=== PATIENT | female | born 1955 | race Caucasian/White ===

== ENCOUNTER 2022-10-22 10:50 | Day surgery (SDC) | payer MEDICARE ==
[2022-10-18 12:29] VITALS: BMI 30.9
[2022-10-22 12:33] LABS: #Basophils 0.1 thou/uL (0.0-0.2); #Eosinphils 0.3 thou/uL (0.0-0.7); %Basophils 0.6 % (0.0-1.0); %Eosinophils 2.7 % (0.0-10.0); %Lymphocytes 23.9 % (21.0-51.0); %Monocytes 10.3 % (0.0-10.0); %Neutrophils 62.2 % (42.0-75.0); Hematocrit 46.8 % (36.0-47.0); Hemoglobin 15.5 g/dL (12.0-16.0); Mean Corpuscular HGB CONC 33.1 g/dL (32.0-36.0); Mean Corpuscular Hemoglobin 30.6 pg (27.0-31.0); Mean Corpuscular Volume 92.3 fl (78.0-98.0); Platelet Count 229 10x3/uL (130-400); RBC Distribution Width 13.9 % (11.5-14.5); Red Blood Cell (RBC) Count 5.07 mill/uL (4.20-5.40); White Blood Cell (WBC) Count 9.6 10x3/uL (4.8-10.8)
[2022-10-22] MEDS ORDERED: Bupivacaine 0.25% HCL 30 ML VIAL ONE (12:55)
[2022-10-22] MEDS ORDERED: EPINEPHrine 1 MG/ML AMP ONE (12:55)
[2022-10-22] MEDS ORDERED: Lidocaine 2% PF 5 ML VIAL ONE (12:55)
[2022-10-22] MEDS ORDERED: Midazolam HCl 2 mg/2 ml Vial ONE (13:00)
[2022-10-22] MEDS ORDERED: Dexmedetomidine 200 MCG/2 ML VIAL ONE (13:00)
[2022-10-22] MEDS ORDERED: Ketamine 50 MG/ML (10ML VIAL) ONE (13:00)
[2022-10-22] MEDS ORDERED: Famotidine/PF 20 mg/2ml Vial ONE ×2 (13:00→13:01)
[2022-10-22] MEDS ORDERED: Sodium Chloride 0.9% 100 ML ONE (13:04)
[2022-10-22] MEDS ORDERED: CEFAZOLIN 2 GM VIAL ONE (13:04)
[2022-10-22] MEDS ORDERED: MINERAL OIL/WHITE PETROLATUM 3.5 GM TUBE ONE (13:18)
[2022-10-22] MEDS ORDERED: Dexamethasone 20 MG/5 ML VIAL ONE (13:18)
[2022-10-22] MEDS ORDERED: PROPOFOL 200 MG/20 ML VIAL ONE (13:18)
[2022-10-22] MEDS ORDERED: Ondansetron PF 4 MG/2 ML Vial ONE (13:18)
[2022-10-22] MEDS ORDERED: Lidocaine 1% PF 5 ML VIAL ONE (13:18)
[2022-10-22] MEDS ORDERED: PHENYLEPHRINE-NS 100 MCG/ML 10 ML SYRINGE ONE (13:18)
[2022-10-22 13:30] LABS: Anion Gap 17 mmol/L (10-20); BUN (Urea Nitrogen) 18 mg/dL (9.8-20.1); Calc. Creatinine Clearance 87 mL/min (70-130); Calcium 9.4 mg/dL (7.8-10.44); Carbon Dioxide 21 mmol/L (23-31); Chloride 106 mmol/L (98-107); Estimated GFR 75; Glucose 102 mg/dL (80-115)
[2022-10-22 13:33] LABS: Sodium 140 mmol/L (136-145)
== END 2022-10-22 16:00 | disposition home or self-care (01) ==
LOC: SDC 10:50
PROVIDERS: ATTEND Surgery
PROC: 0JBF0ZZ Excision of Left Upper Arm Subcutaneous Tissue and Fascia, Open Approach (ICD-10-PCS; principal; 2022-10-22)
PROC: 0JBD0ZZ Excision of Right Upper Arm Subcutaneous Tissue and Fascia, Open Approach (ICD-10-PCS; 2022-10-22)
DX: D17.21 Benign lipomatous neoplasm of skin and subcutaneous tissue of right arm (principal); D17.22 Benign lipomatous neoplasm of skin and subcutaneous tissue of left arm; I10 Essential (primary) hypertension; E07.9 Disorder of thyroid, unspecified; Z79.890 Hormone replacement therapy; Z79.899 Other long term (current) drug therapy; Z90.710 Acquired absence of both cervix and uterus; Z90.49 Acquired absence of other specified parts of digestive tract; Z88.6 Allergy status to analgesic agent
CPT/HCPCS: 80048; 85025; 88304; 93005; 93010; J0171; J1100; J2001; J2250; J2405; J2704; J3490; S0020; S0028